=== PATIENT | female | born 1940 | race Caucasian/White ===

== ENCOUNTER 2018-07-08 13:01 | Emergency (ER) | payer OTHER, MEDICAID ==
[~2018-07-08] VITALS: Ht 154.9 cm; Wt 72.6 kg
[~2018-07-08 13:01] MED LIST: AMLO1TAB12 PO; ASPI-1154 PO; GLU500 PO; LEVO88TA2 PO
[2018-07-08 13:25] VITALS: BP_SYST 156
[2018-07-08 14:40] VITALS: BP_SYST 156
== END 2018-07-08 14:40 | disposition home or self-care (01) ==
LOC: SED 13:01
DX: J06.9 Acute upper respiratory infection, unspecified (principal); E11.9 Type 2 diabetes mellitus without complications; I10 Essential (primary) hypertension; Z88.5 Allergy status to narcotic agent; Z88.6 Allergy status to analgesic agent; Z79.899 Other long term (current) drug therapy
CPT/HCPCS: 71045; 99283

== ENCOUNTER 2019-01-15 15:33 | Emergency (ER) | payer OTHER, MEDICAID ==
[~2019-01-15] VITALS: Ht 154.9 cm; Wt 72.6 kg
[2019-01-15 15:43] VITALS: BP_SYST 137
[2019-01-15] MEDS ORDERED: NACL 0.9% 1,000 ML IV ONE (16:02)
[2019-01-15] MEDS ORDERED: ONDANSETRON HCL 4 MG/2 ML VIAL IVP ONE (16:15)
[2019-01-15] MEDS ORDERED: MORPHINE 4 MG/ML INJ. SYRINGE IVP ONE (16:15)
[2019-01-15] MEDS ORDERED: PRO40 PO (16:38)
[2019-01-15] MEDS ORDERED: DOCU-144 PO (16:38)
[2019-01-15] MEDS ORDERED: CELE200C PO (16:38)
[2019-01-15] MEDS ORDERED: HYDR-3606 PO (16:38)
[2019-01-15] MEDS ORDERED: ZOLP5TAB2 PO (16:38)
[2019-01-15] MEDS ORDERED: BUSP10TA3 PO (16:38)
[2019-01-15 16:44] LABS: BASOPHILS # (AUTO) 0.1 K/uL (0.0-0.2); EOSINOPHILS # (AUTO) 0.2 K/uL (0.0-0.4); EOSINOPHILS % (AUTO) 2.6 % (0.0-4.0); HEMATOCRIT 37.1 % (36-48); HEMOGLOBIN 12.2 g/dL (12.0-16.0); LYMPHOCYTES # (AUTO) 1.9 K/uL (1.0-5.5); LYMPHOCYTES % (AUTO) 21.7 % (20.5-51.5); MEAN CORPUSCULAR HEMOGLOBIN 27 pg (27-31); MEAN CORPUSCULAR HGB CONC 33 % (32-36); MEAN CORPUSCULAR VOLUME 82 fL (79.0-98.0); MONOCYTES # (AUTO) 0.5 K/uL (0.0-1.0); MONOCYTES % (AUTO) 6.4 % (1.7-9.3); NEUTROPHILS # (AUTO) 5.8 K/uL (1.8-7.7); NEUTROPHILS % (AUTO) 68.3 % (40.0-70.0); PLATELET COUNT (AUTO) 297 K/uL (130-430); RED BLOOD CELL COUNT(AUTO) 4.55 MIL/uL (4.2-6.2); RED CELL DISTRIBUTION WIDTH 17.3 % (9.0-15.0); WHITE BLOOD COUNT (AUTO) 8.5 K/uL (4.8-10.8)
[2019-01-15 16:57] LABS: INR 1.1 (0.8-1.2); PROTHROMBIN TIME 11.1 SECS (9.5-12.5)
[2019-01-15 16:58] LABS: ANION GAP 10 (5-15); CALCIUM 9.7 mg/dL (8.4-11.0); CHLORIDE 96 mmol/L (98-107); CREATININE 0.84 mg/dL (0.55-1.30); GLUCOSE 108 mg/dL (70-99); POTASSIUM 4.8 mmol/L (3.5-5.1); SODIUM SERUM 130 mmol/L (136-145); UREA NITROGEN, BLOOD 16 mg/dL (8-21)
[2019-01-15 17:11] LABS: ALANINE AMINOTRANSFERASE 12 U/L (12-78); ALBUMIN 3.8 g/dL (3.4-4.8); AMYLASE 88 U/L (0-100); ASPARTATE AMINOTRANSFERASE 15 U/L (10-37); LIPASE 141 U/L (73-393); TOTAL BILIRUBIN 0.5 mg/dL (0.0-1.0)
[2019-01-15 18:05] VITALS: BP_SYST 149
== END 2019-01-15 18:05 | disposition home or self-care (01) ==
LOC: SED 15:33
DX: K57.90 Diverticulosis of intestine, part unspecified, without perforation or abscess without bleeding (principal); K59.00 Constipation, unspecified; E11.9 Type 2 diabetes mellitus without complications; I10 Essential (primary) hypertension; Z96.651 Presence of right artificial knee joint; Z88.5 Allergy status to narcotic agent; Z79.899 Other long term (current) drug therapy
CPT/HCPCS: 36415; 71045; 80053; 82150-TC; 82550-TC; 83605; 83690-TC; 84484; 85025; 85610-TC; 85730-TC; 87040-TC; 93005; 99284

== ENCOUNTER 2021-11-04 09:44 | Emergency (ER) | payer OTHER, MEDICAID ==
[~2021-11-04] VITALS: Ht 154.9 cm; Wt 72.6 kg
[~2021-11-04 09:44] MED LIST changes: -ASPI-1154 PO; +ASPI-1457 PO; +BUSP10TA3 PO; +CELE200C PO; +DOCU-144 PO; +HYDR-3607 PO; +PRO40 PO; +ZOLP5TAB2 PO
[2021-11-04 10:08] LABS: BASOPHILS # (AUTO) 0.1 K/uL (0.0-0.2); EOSINOPHILS # (AUTO) 0.1 K/uL (0.0-0.4); EOSINOPHILS % (AUTO) 1.7 % (0.0-4.0); HEMATOCRIT 37.3 % (36-48); HEMOGLOBIN 12.6 g/dL (12.0-16.0); LYMPHOCYTES # (AUTO) 1.3 K/uL (1.0-5.5); LYMPHOCYTES % (AUTO) 19.9 % (20.5-51.5); MEAN CORPUSCULAR HEMOGLOBIN 26 pg (27-31); MEAN CORPUSCULAR HGB CONC 34 % (32-36); MEAN CORPUSCULAR VOLUME 78 fL (79.0-98.0); MONOCYTES # (AUTO) 0.6 K/uL (0.0-1.0); MONOCYTES % (AUTO) 9.7 % (1.7-9.3); NEUTROPHILS # (AUTO) 4.5 K/uL (1.8-7.7); NEUTROPHILS % (AUTO) 67.7 % (40.0-70.0); PLATELET COUNT (AUTO) 281 K/uL (130-430); RED BLOOD CELL COUNT(AUTO) 4.76 MIL/uL (4.2-6.2); RED CELL DISTRIBUTION WIDTH 17.6 % (9.0-15.0); WHITE BLOOD COUNT (AUTO) 6.6 K/uL (4.8-10.8)
[2021-11-04 10:12] VITALS: BP_SYST 122
--- NOTE | 2021-11-04 10:12 | NUR ---
Pt triaged and placed in waiting room pending bed availability.
[2021-11-04 10:20] LABS: ANION GAP 9 (5-15); CALCIUM 9.1 mg/dL (8.4-11.0); CHLORIDE 93 mmol/L (98-107); CREATININE 0.87 mg/dL (0.55-1.30); GLUCOSE 105 mg/dL (70-99); POTASSIUM 3.4 mmol/L (3.5-5.1); SODIUM SERUM 127 mmol/L (136-145); UREA NITROGEN, BLOOD 11 mg/dL (8-21)
--- NOTE | 2021-11-04 10:24 | NUR ---
Pt here from home reporting 8/10 abd pain and excessive burping. 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 Pt further reports stool is "not normal." Pt alert and oriented upon face to face assessment. Ambulatory with walker noted. Pending MD moreno.
[2021-11-04 10:28] LABS: ALANINE AMINOTRANSFERASE 13 U/L (12-78); ALBUMIN 3.2 g/dL (3.4-4.8); ASPARTATE AMINOTRANSFERASE 12 U/L (10-37); TOTAL BILIRUBIN 0.7 mg/dL (0.0-1.0)
[2021-11-04] MEDS ORDERED: MAG-AL HYDROX/SIMETH 30 ML UDC PO ONE (10:45)
[2021-11-04] MEDS ORDERED: SUCRALFATE 1 GM TABLET PO ONE (10:45)
[2021-11-04] MEDS ORDERED: ONDANSETRON 4 MG ODT TAB PO ONE (10:45)
--- NOTE | 2021-11-04 11:30 | NUR ---
Dr Willis evaluating patient at bedside
[2021-11-04] MEDS ORDERED: METR-154 PO (12:08)
[2021-11-04] MEDS ORDERED: CIPR500T5 PO (12:09)
[2021-11-04 12:42] VITALS: BP_SYST 122
--- NOTE | 2021-11-04 12:44 | NUR ---
Patient given written and verbal discharge instructions and verbalizes understanding. ER MD discussed with patient the results and treatment provided. Patient in stable condition. ID arm band removed. Rx of Cipro anf flagyl given. Patient educated on pain management and to follow up with PMD. Pain Scale 2/10. Opportunity for questions provided and answered. Medication side effect fact sheet provided.
[2021-11-04 12:51] LABS: BILIRUBIN,URINE NEGATIVE (NEGATIVE); BLOOD, URINE 1+ (NEGATIVE); CLARITY/URINE CLEAR (CLEAR); COLOR,URINE YELLOW (YELLOW); GLUCOSE,URINE NEGATIVE (NEGATIVE); KETONES,URINE TRACE (NEGATIVE); LEUKOCYTE ESTERASE ,URINE NEGATIVE (NEGATIVE); NITRITE, URINE NEGATIVE (NEGATIVE); PROTEIN URINE NEGATIVE (NEGATIVE); UROBILINOGEN,URINE 0.2 (0.2-1.0)
[2021-11-04 13:02] LABS: BACTERIA,URINE RARE /HPF (None Seen); RBC,URINE 0-3 /HPF (0-3); WBC,URINE 0-3 /HPF (0-3)
[2021-11-04 13:03] LABS: MUCUS,URINE 1+ /LPF (None Seen)
== END 2021-11-04 12:42 | disposition home or self-care (01) ==
LOC: SED 09:44
DX: K57.92 Diverticulitis of intestine, part unspecified, without perforation or abscess without bleeding (principal)
CPT/HCPCS: 36415; 71045; 76376; 80053; 81000; 83690; 83880; 84484; 85025; 93005; 99285